=== PATIENT | male | born 1975 | race Caucasian/White ===

== ENCOUNTER 2019-05-26 20:48 | Observation (INO) | payer BC ==
[2019-05-27] MEDS ORDERED: ASPIRIN 81 MG TABLET, CHEWABLE PO ONE (00:04)
[2019-05-27] MEDS ORDERED: LABETALOL HCL INJ 20 MG/4 ML DISP.SYRIN IV ONE (00:05)
--- NOTE | 2019-05-27 00:06 | ER Document Report ---
ED Cardiac - General Chief Complaint: Chest Pain Stated Complaint: CHEST PAIN Time Seen by Provider: 05/26/19 23:56 Mode of Arrival: Ambulatory Information source: Patient TRAVEL OUTSIDE OF THE [place] IN LAST 30 DAYS: No - HPI Patient complains to provider of: Chest pain Was the onset of pain: Sudden Is the pain a: New problem Chest pain location: Substernal Quality of pain: Constant, Moderate, Heaviness Chest pain radiation location: Left arm Severity now: Moderate Severity at worst: Severe Pain level currently: 3 Chest pain precipitating factors: At Rest Cardiac risk factors: Hx PA Positive cardiac history: Yes Associated symptoms: Headache Exacerbated by: Denies Relieved by: Nothing Similar symptoms previously: No Recently seen / treated by doctor: No - Related Data Allergies/Adverse Reactions: No Known Allergies Allergy (Verified 11/24/13 23:07) Past Medical History - Social History Smoking Status: Unknown if Ever Smoked Family History: Reviewed & Not Pertinent - Immunizations Hx Diphtheria, Pertussis, Tetanus Vaccination: No Review of Systems - Review of Systems Constitutional: No symptoms reported EENT: No symptoms reported Cardiovascular: Chest pain Respiratory: No symptoms reported Gastrointestinal: No symptoms reported Genitourinary: No symptoms reported Male Genitourinary: No symptoms reported Musculoskeletal: No symptoms reported Skin: No symptoms reported Hematologic/Lymphatic: No symptoms reported Neurological/Psychological: No symptoms reported -: Yes All other systems reviewed and negative Physical Exam - Vital signs Vitals: Temp Pulse Resp BP Pulse Ox 98.6 F 86 16 165/99 H 94 05/26/19 22:08 05/26/19 22:08 05/26/19 22:08 05/26/19 22:08 05/26/19 22:08 Interpretation: Normal - General General appearance: Appears well, Alert, Other - Obese In distress: None - HEENT Head: Normocephalic, Atraumatic Eyes: Normal Pupils: PERRL - Respiratory Respiratory status: No respiratory distress Chest status: Nontender Breath sounds: Normal Chest palpation: Normal - Cardiovascular Rhythm: Regular Heart sounds: Normal auscultation Murmur: No - Abdominal Inspection: Normal Distension: No distension Bowel sounds: Normal Tenderness: Nontender Organomegaly: No organomegaly - Back Back: Normal, Nontender - Extremities General upper extremity: Normal inspection, Nontender, Normal color, Normal ROM, Normal temperature General lower extremity: Normal inspection, Nontender, Normal color, Normal ROM, Normal temperature, Normal weight bearing. No: Jonas's sign - Neurological Neuro grossly intact: Yes Cognition: Normal Orientation: AAOx4 Lyla Coma Scale Eye Opening: Spontaneous [place] Coma Scale Verbal: Oriented [place] Coma Scale Motor: Obeys Commands Lyla Coma Scale Total: 15 Speech: Normal Motor strength normal: LUE, RUE, LLE, RLE Sensory: Normal - Psychological Associated symptoms: Normal affect, Normal mood - Skin Skin Temperature: Warm Skin Moisture: Dry Skin Color: Normal Course - Re-evaluation Re-evalutation: 05/27/19 04:35 Patient is currently chest pain-free in the ED. Nitroglycerin was not given because the blood pressure is 128 systolic and patient is chest pain-free. - Vital Signs Vital signs: Temp Pulse Resp BP Pulse Ox 98.3 F 86 17 128/79 H 92 05/27/19 01:00 05/26/19 22:08 05/27/19 03:01 05/27/19 03:01 05/27/19 03:01 - Laboratory Result Diagrams: 05/27/19 00:03 05/27/19 00:03 Laboratory results interpreted by me: 05/27/19 05/27/19 00:03 00:03 RDW 14.6 H Glucose 112 H Creatine Kinase 324 H - Diagnostic Test Radiology reviewed: Reports reviewed Radiology results interpreted by or: 05/27/19 03:31 Chest x-ray is negative. - EKG Interpretation by Hi EKG shows normal: Sinus rhythm Rate: Normal Heart block present: 1st Degree When compared to previous EKG there are: Previous EKG unavailable Additional EKG results interpreted by or: 05/27/19 03:33 No STEMI. - Transfer of Care Notes: 05/27/19 04:35 Patient will be admitted by the hospitalist Dr. Chinedu Barroso for further evaluation and management. Discharge - Discharge Clinical Impression: Uncontrolled hypertension Chest pain Qualifiers: Chest pain type: unspecified Qualified Code(s): R07.9 - Chest pain, unspecified Condition: Stable Disposition: ADMITTED INPATIENT Admitting Provider: Dharmesh (Hospitalist) Unit Admitted: Telemetry
[2019-05-27 00:22] LABS: ABSOLUTE EOSINOPHILS # (AUTO) 0.2 10^3/uL (0.0-0.6); ABSOLUTE LYMPHOCYTES (AUTO) 2.5 10^3/uL (0.5-4.7); ABSOLUTE MONOCYTES (AUTO) 0.8 10^3/uL (0.1-1.4); ABSOLUTE NEUT (AUTO) 3.6 10^3/uL (1.7-8.2); BASOPHILS % (AUTO) 0.7 % (0-2); EOSINOPHILS % (AUTO) 2.6 % (0-6); HEMATOCRIT 43.9 % (37.9-51.0); HEMOGLOBIN 15.1 g/dL (13.5-17.0); LYMPHOCYTES % (AUTO) 35.3 % (13-45); MEAN CORPUSCULAR HEMOGLOBIN 29.1 pg (27.0-33.4); MEAN CORPUSCULAR HGB CONC 34.5 g/dL (32.0-36.0); MEAN CORPUSCULAR VOLUME 85 fl (80-97); PLATELET COUNT 160 10^3/uL (150-450); RED BLOOD COUNT 5.19 10^6/uL (4.35-5.55); RED CELL DISTRIBUTION WIDTH 14.6 % (11.5-14.0); SEGMENTED NEUTROPHILS % (AUTO) 50.4 % (42-78); TOTAL CELLS COUNTED % (AUTO) 100 %; WHITE BLOOD COUNT 7.2 10^3/uL (4.0-10.5)
[2019-05-27 00:25] LABS: INTERNATIONAL RATION (INR) 0.99; PROTHROMBIN TIME 13.1 SEC (11.4-15.4)
[2019-05-27] MEDS ORDERED: LISINOPRIL 10 MG TABLET PO ONE (00:35)
[2019-05-27 00:36] LABS: ALANINE AMINOTRANSFERASE 56 U/L (21-72); ALKALINE PHOSPHATASE 68 U/L (38-126); ANION GAP 8 (5-19); ASPARTATE AMINO TRANSFERASE 35 U/L (17-59); BILIRUBIN,DIRECT 0.2 mg/dL (0.0-0.4); BILIRUBIN,TOTAL 0.5 mg/dL (0.2-1.3); BLOOD UREA NITROGEN 18 mg/dL (7-20); CALCIUM 9.2 mg/dL (8.4-10.2); CARBON DIOXIDE 24 mmol/L (22-30); CHLORIDE 106 mmol/L (98-107); CREATINE KINASE 324 U/L (55-170); GLUCOSE 112 mg/dL (75-110); POTASSIUM 3.8 mmol/L (3.6-5.0); SODIUM 138.3 mmol/L (137-145); TOTAL PROTEIN 7.1 g/dL (6.3-8.2)
[2019-05-27 00:48] LABS: CREATINE KINASE MB 2.21 ng/mL (<4.55)
[2019-05-27 00:49] LABS: TROPONIN I < 0.012 ng/mL
--- NOTE | 2019-05-27 00:57 | RADIOLOGY REPORT (SQ) ---
EXAM DESCRIPTION: [facility]: XR CHEST 1 VIEW CLINICAL HISTORY: 44 years Male, chest pain COMPARISON: 09/09/2015 FINDINGS: Lungs are clear, with no focal infiltrate, pneumothorax, or pleural effusion. Mediastinum is within normal limits for this positioning. Bony structures are unremarkable. IMPRESSION: 1. No acute pulmonary findings.
[2019-05-27] MEDS ORDERED: NITROGLYCERIN 2% OINTMENT 1 GM PACKET TP ONE (03:30)
[2019-05-27] MEDS ORDERED: NITROGLYCERIN 0.4 MG/TAB 25 TAB/BOTTLE SL PRN (03:52)
[2019-05-27] MEDS ORDERED: MAG HYDROX/AL HYDROX/SIMETH SUSP 30 ML UDCUP PO PRN (03:52)
[2019-05-27] MEDS ORDERED: ACETAMINOPHEN 325 MG TABLET PO PRN (03:52)
--- NOTE | 2019-05-27 06:19 | PDOC H&P ---
History of Present Illness Admission Date/PCP: 05/27/19 04:33 VIRGINIA MARES PA-C Patient complains of: Chest pain History of Present Illness: HERMELINDA RUIZ is a 44 year old male with a past medical history of hypertension and hypogonadism who presents with 2 and half hours of retrosternal left-sided chest pain which radiates to the left shoulder and arm, 3 out of 5 intensity, dull in nature. Though not associated with palpitations nausea vomiting diaphoresis. He is unable to identify alleviating or exacerbating factors in the emergency room he has an unremarkable work-up and is referred to the hospitalist for admission. Patient admits previous episode February 2018 having treadmill stress test at [facility] which was negative. Patient denies recent change in medication regiment is otherwise felt well. Past Medical History Cardiac Medical History: Reports: Myocardial Infarction, Hypertension Past Surgical History Past Surgical History: Reports: None Social History Information Source: Patient Lives with: Spouse/Significant other Smoking Status: Unknown if Ever Smoked Frequency of Alcohol Use: None Drugs: None - Advance Directive Resuscitation Status: Full Code Family History Family History: CAD Parental Family History Reviewed: Yes Children Family History Reviewed: Yes Sibling(s) Family History Reviewed.: Yes Medication/Allergy Home Medications: Oseltamivir Phosphate [Tamiflu] 75 mg PO BID #10 capsule 11/24/13 Hydrochlorothiazide 12.5 mg PO DAILY #30 capsule 09/09/15 Allergies/Adverse Reactions: No Known Allergies Allergy (Verified 11/24/13 23:07) Review of Systems Constitutional: ABSENT: chills, fever(s), headache(s), weight gain, weight loss Eyes: ABSENT: visual disturbances Ears: ABSENT: hearing changes Cardiovascular: ABSENT: chest pain, dyspnea on exertion, edema, orthropnea, palpitations Respiratory: ABSENT: cough, hemoptysis Gastrointestinal: ABSENT: abdominal pain, constipation, diarrhea, hematemesis, hematochezia, nausea, vomiting Genitourinary: ABSENT: dysuria, hematuria Musculoskeletal: ABSENT: joint swelling Integumentary: ABSENT: rash, wounds Neurological: ABSENT: abnormal gait, abnormal speech, confusion, dizziness, focal weakness, syncope Psychiatric: ABSENT: anxiety, depression, homidical ideation, suicidal ideation Endocrine: ABSENT: cold intolerance, heat intolerance, polydipsia, polyuria Hematologic/Lymphatic: ABSENT: easy bleeding, easy bruising Physical Exam Vital Signs: Temp Pulse Resp BP Pulse Ox 98.3 F 86 17 128/79 H 92 05/27/19 01:00 05/26/19 22:08 05/27/19 03:01 05/27/19 03:01 05/27/19 03:01 Intake & Output 05/25/19 05/26/19 05/27/19 11:59 11:59 11:59 Weight 128.4 kg General appearance: PRESENT: no acute distress, well-developed, well-nourished Head exam: PRESENT: atraumatic, normocephalic Eye exam: PRESENT: conjunctiva pink, EOMI, PERRLA. ABSENT: scleral icterus Ear exam: PRESENT: normal external ear exam Mouth exam: PRESENT: moist, tongue midline Neck exam: ABSENT: carotid bruit, JVD, lymphadenopathy, thyromegaly Respiratory exam: PRESENT: clear to auscultation dewey. ABSENT: rales, rhonchi, wheezes Cardiovascular exam: PRESENT: RRR. ABSENT: diastolic murmur, rubs, systolic murmur Pulses: PRESENT: normal dorsalis pedis pul Vascular exam: PRESENT: normal capillary refill GI/Abdominal exam: PRESENT: normal bowel sounds, soft. ABSENT: distended, guarding, mass, organolmegaly, rebound, tenderness Rectal exam: PRESENT: deferred Extremities exam: PRESENT: full ROM. ABSENT: calf tenderness, clubbing, pedal edema Neurological exam: PRESENT: alert, awake, oriented to person, oriented to place, oriented to time, oriented to situation, CN II-XII grossly intact. ABSENT: motor sensory deficit Psychiatric exam: PRESENT: appropriate affect, normal mood. ABSENT: homicidal ideation, suicidal ideation Skin exam: PRESENT: dry, intact, warm. ABSENT: cyanosis, rash Results Laboratory Results: 05/27/19 00:03 05/27/19 00:03 05/27/19 05/27/19 00:03 00:03 WBC 7.2 RBC 5.19 Hgb 15.1 Hct 43.9 MCV 85 MCH 29.1 MCHC 34.5 RDW 14.6 H Plt Count 160 Seg Neutrophils % 50.4 Lymphocytes % 35.3 Monocytes % 11.0 Eosinophils % 2.6 Basophils % 0.7 Absolute Neutrophils 3.6 Absolute Lymphocytes 2.5 Absolute Monocytes 0.8 Absolute Eosinophils 0.2 Absolute Basophils 0.0 Sodium 138.3 Potassium 3.8 Chloride 106 Carbon Dioxide 24 Anion Gap 8 BUN 18 Creatinine 1.02 Est GFR ( Amer) > 60 Est GFR (Non-Af Amer) > 60 Glucose 112 H Calcium 9.2 Total Bilirubin 0.5 AST 35 ALT 56 Alkaline Phosphatase 68 Total Protein 7.1 Albumin 4.0 05/27/19 05/27/19 00:03 00:03 Creatine Kinase 324 H CK-MB (CK-2) 2.21 Troponin I < 0.012 Impressions: Chest X-Ray 05/27/19 00:04 IMPRESSION: 1. No acute pulmonary findings. Assessment and Plan - Diagnosis (1) Chest pain Qualifiers: Chest pain type: unspecified Qualified Code(s): R07.9 - Chest pain, unspecified Is this a current diagnosis for this admission?: Yes Plan: Atypical chest pain though the patient's pain is atypical there are multiple risk factors for coronary artery disease and subsequently will observe and evaluation of acute coronary syndrome versus coronary artery disease with anginal equivalents. Cardiac monitoring blood pressure Q6 hours ,TSH, lipid profile, serial cardiac enzymes and cardiac stress test (2) Hypogonadism Is this a current diagnosis for this admission?: Yes Plan: Follow-up free testosterone (3) Uncontrolled hypertension Is this a current diagnosis for this admission?: Yes Plan: MARYAN inhibitor, hydralazine as needed - Time Time Spent with patient: 25-34 minutes
[2019-05-27] MEDS ORDERED: LISINOPRIL 10 MG TABLET PO SCH (10:00)
[2019-05-27] MEDS ORDERED: ASPIRIN 81 MG TABLET, ENT COATED PO SCH (10:00)
[2019-05-27 14:52] VITALS: BP 125/90
--- NOTE | 2019-05-27 19:20 | EKG REPORT ---
SEVERITY:- ABNORMAL ECG - SINUS RHYTHM FIRST DEGREE AV BLOCK : Confirmed by: Melina Carlton 27-May-2019 19:18:57
[2019-05-27] MEDS ORDERED: ATORVASTATIN CALCIUM 40 MG TABLET PO SCH (22:00)
--- NOTE | 2019-05-27 22:00 | PDOC DISCHARGE SUMMARY ---
General - Admit/Disc Date/PCP Admission Date/Primary Care Provider: 05/27/19 04:33 VIRGINIA MARES PA-C Discharge Date: 05/27/19 - Discharge Diagnosis (1) Chest pain Is this a current diagnosis for this admission?: Yes Summary: Patient was admitted with atypical chest pain. He does have multiple risk factors including HTN and obesity. After further discussion, it is likely the patient does not have a prior RI. Patient relates that he was sent to ED from PCP in 2018 for abn EKG but subsequently had negative troponin overnight with a normal treadmill stress test w/o recommendations for medications or cardiology follow up. CXR is benign EKG demonstrates NSR with 1st degree block Troponins are negative x 3 No further episodes of chest discomfort. As stress testing is not available over the weekend and patient is considered low risk (HEART score 2), patient was provided to option of remaining in house until Wednesday vs discharge to home with outpatient cardiology follow up to schedule further testing. Patient elected to discharge home. He is advised to follow up with his PCP within 1 week. He is instructed to call Dr. Carlton's office on Wednesday to schedule follow up appointment and stress testing. He is instructed to avoid tobacco intake and eat a low sodium diet. He is provided prescriptions for ASA, atorvastatin, and lisinopril. Patient is advised to return to the emergency department as needed for any concerning symptoms. (2) Uncontrolled hypertension Is this a current diagnosis for this admission?: Yes Summary: Improved. Recommend lifestyle and dietary modifications. Continue cardiac diet; decrease tobacco and caffeine intake Have resumed patient's prior home medication; Lisinopril 40mg daily. (3) Hypogonadism Is this a current diagnosis for this admission?: Yes Summary: Continue home medication regiment. - Additional Information Resuscitation Status: Full Code Discharge Diet: Cardiac Discharge Activity: Activity As Tolerated, Balance Activity w/Rest Prescriptions: Aspirin [Ecotrin 81 mg EC Tablet] 81 mg PO DAILY #90 tabec Atorvastatin Calcium [Lipitor 40 mg Tablet] 40 mg PO QHS #30 tablet Lisinopril [Prinivil 40 mg Tablet] 40 mg PO DAILY #30 tablet Home Medications: Acetaminophen [Tylenol 325 mg Tablet] 650 mg PO Q4HP PRN tablet 05/27/19 Aspirin [Ecotrin 81 mg EC Tablet] 81 mg PO DAILY #90 tabec 05/27/19 Atorvastatin Calcium [Lipitor 40 mg Tablet] 40 mg PO QHS #30 tablet 05/27/19 Clomiphene Citrate [Serophene 50 mg Tablet] 50 mg PO MOWEFR@0800 05/27/19 Lisinopril [Prinivil 40 mg Tablet] 40 mg PO DAILY #30 tablet 05/27/19 History of Present Illness History of Present Illness: Per H&P by Dr. Barroso: HERMELINDA RUIZ is a 44 year old male with a past medical history of hypertension and hypogonadism who presents with 2 and half hours of retrosternal left-sided chest pain which radiates to the left shoulder and arm, 3 out of 5 intensity, dull in nature. Though not associated with palpitations nausea vomiting diaphoresis. He is unable to identify alleviating or exacerbating factors in the emergency room he has an unremarkable work-up and is referred to the hospitalist for admission. Patient admits previous episode February 2018 having treadmill stress test at [facility] which was negative. Patient denies recent change in medication regiment is otherwise felt well. Physical Exam Vital Signs: Temp Pulse Resp BP Pulse Ox 98.4 F 86 15 122/81 95 05/27/19 07:02 05/26/19 22:08 05/27/19 08:01 05/27/19 08:01 05/27/19 08:01 Intake & Output 05/26/19 05/27/19 05/28/19 06:59 06:59 06:59 Weight 128.4 kg General appearance: PRESENT: no acute distress, cooperative, obese, well- developed, well-nourished Head exam: PRESENT: atraumatic, normocephalic Eye exam: PRESENT: conjunctiva pink, EOMI, PERRLA. ABSENT: scleral icterus Ear exam: PRESENT: normal external ear exam Mouth exam: PRESENT: moist, tongue midline Neck exam: ABSENT: carotid bruit, JVD, lymphadenopathy, thyromegaly Respiratory exam: PRESENT: clear to auscultation dewey, symmetrical, unlabored. ABSENT: rales, rhonchi, wheezes Cardiovascular exam: PRESENT: RRR, +S1, +S2. ABSENT: diastolic murmur, rubs, systolic murmur Pulses: PRESENT: normal dorsalis pedis pul Vascular exam: PRESENT: normal capillary refill GI/Abdominal exam: PRESENT: normal bowel sounds, soft. ABSENT: distended, guarding, mass, organolmegaly, rebound, tenderness Rectal exam: PRESENT: deferred Extremities exam: PRESENT: full ROM. ABSENT: calf tenderness, clubbing, pedal edema Neurological exam: PRESENT: alert, awake, oriented to person, oriented to place, oriented to time, oriented to situation, CN II-XII grossly intact. ABSENT: motor sensory deficit Psychiatric exam: PRESENT: appropriate affect, normal mood. ABSENT: homicidal ideation, suicidal ideation Skin exam: PRESENT: dry, intact, warm. ABSENT: cyanosis, rash Results Laboratory Results: 05/27/19 00:03 05/27/19 00:03 05/27/19 05/27/19 00:03 00:03 WBC 7.2 RBC 5.19 Hgb 15.1 Hct 43.9 MCV 85 MCH 29.1 MCHC 34.5 RDW 14.6 H Plt Count 160 Seg Neutrophils % 50.4 Lymphocytes % 35.3 Monocytes % 11.0 Eosinophils % 2.6 Basophils % 0.7 Absolute Neutrophils 3.6 Absolute Lymphocytes 2.5 Absolute Monocytes 0.8 Absolute Eosinophils 0.2 Absolute Basophils 0.0 Sodium 138.3 Potassium 3.8 Chloride 106 Carbon Dioxide 24 Anion Gap 8 BUN 18 Creatinine 1.02 Est GFR ( Amer) > 60 Est GFR (Non-Af Amer) > 60 Glucose 112 H Calcium 9.2 Total Bilirubin 0.5 AST 35 ALT 56 Alkaline Phosphatase 68 Total Protein 7.1 Albumin 4.0 05/27/19 05/27/19 05/27/19 00:03 00:03 06:34 Creatine Kinase 324 H CK-MB (CK-2) 2.21 Troponin I < 0.012 < 0.012 05/27/19 12:22 Creatine Kinase CK-MB (CK-2) Troponin I < 0.012 Impressions: Chest X-Ray 05/27/19 00:04 IMPRESSION: 1. No acute pulmonary findings. Qualifiers - * PATIENT BEING DISCHARGED WITH ANY OF THE FOLLOWING DIAGNOSIS: No Acute Heart Failure - Is this a Heart Failure Patient?: No Plan Discharge Plan: Follow up with primary care provider within 1 week. Continue daily Aspirin and Statin therapy. Follow up with Dr. Carlton, transcripter, next week to schedule outpatient echocardiogram and stress test. Do not smoke. Decrease caffeine and salt intake. Return to the emergency department as needed for concerning symptoms. Time Spent: Less than 30 Minutes
[2019-05-29] MEDS ORDERED: CLOMIPHENE CITRATE 50 MG PO SCH (08:00)
== END 2019-05-27 14:43 | disposition home or self-care (01) ==
LOC: ER 20:48 → EH 05-27 04:33
PROVIDERS: ADMIT Internal Medicine; ATTEND Internal Medicine
DX: R07.89 Other chest pain (principal); I10 Essential (primary) hypertension; E66.9 Obesity, unspecified; R51 Headache; E29.1 Testicular hypofunction; I44.0 Atrioventricular block, first degree; I25.2 Old myocardial infarction; Z79.899 Other long term (current) drug therapy; Z82.49 Family history of ischemic heart disease and other diseases of the circulatory system
CPT/HCPCS: 93005; 99285; 36415; 82553; 82550; 85025; 85610; 80053; 84484; 84402; 71045; 93010; J3490

== ENCOUNTER 2019-11-04 03:39 | Emergency (ER) | payer BC ==
[2019-11-04 03:52] VITALS: BP 125/83
--- NOTE | 2019-11-04 04:54 | RADIOLOGY REPORT (SQ) ---
CLINICAL HISTORY: coughed and heard ribs pop on left posterior. COMPARISON: None. TECHNIQUE: XR CHEST 2 VIEWS 11/04/2019 12:00 AM SERVICE ORDER TAKER FINDINGS: Cardiac silhouette is normal in size. Lungs are clear without consolidation, atelectasis, mass or edema. There is no pleural effusion. There is no pneumothorax. There are no acute osseous findings. IMPRESSION: Clear lungs.
[2019-11-04] MEDS ORDERED: KETOROLAC TROMETHAMINE 60 MG/2 ML SDV IM ONE (06:15)
--- NOTE | 2019-11-04 06:20 | ER Document Report ---
ED General - General Chief Complaint: Rib Pain Stated Complaint: COUGH,LEFT SIDE "POP" Time Seen by Provider: 11/04/19 06:10 Primary Care Provider: VIRGINIA RIZO PA-C [Primary Care Provider] - Follow up as needed Notes: 44-year-old male presents with left lower rib pain that occurred while he was coughing. Patient states he felt a pop last night and has had pain ever since. Pain is worse with coughing. Patient states he has been coughing for the past several weeks. Patient states sometimes it is productive with phlegm. Denies any blood. Patient denies any shortness of breath. Patient denies any fever. TRAVEL OUTSIDE OF THE [place] IN LAST 30 DAYS: No - Related Data Allergies/Adverse Reactions: No Known Allergies Allergy (Verified 11/24/13 23:07) Home Medications: lisinopril. metoprolol Past Medical History - Social History Smoking Status: Never Smoker Frequency of alcohol use: None Drug Abuse: None Family History: CAD Patient has suicidal ideation: No Patient has homicidal ideation: No - Past Medical History Cardiac Medical History: Reports: Hx Heart Attack, Hx Hypertension Renal/ Medical History: Denies: Hx Peritoneal Dialysis - Immunizations Hx Diphtheria, Pertussis, Tetanus Vaccination: No Review of Systems - Review of Systems Notes: Constitutional: Negative for fever. HENT: Negative for sore throat. Eyes: Negative for visual changes. Cardiovascular: Negative for chest pain. Respiratory: Positive for cough. Negative for shortness of breath. Gastrointestinal: Negative for abdominal pain, vomiting or diarrhea. Genitourinary: Negative for dysuria. Musculoskeletal: Positive for rib pain. Negative for back pain. Skin: Negative for rash. Neurological: Negative for headaches, weakness or numbness. 10 point ROS negative except as marked above and in HPI. Physical Exam - Vital signs Vitals: Temp Pulse Resp BP Pulse Ox 98.5 F 76 20 125/83 93 11/04/19 03:49 11/04/19 03:49 11/04/19 03:49 11/04/19 03:49 11/04/19 03:49 - Notes Notes: GENERAL: Well-appearing, well-nourished and in no acute distress. HEAD: Atraumatic, normocephalic. EYES: Pupils equal round and reactive to light, extraocular movements intact, sclera anicteric, conjunctiva are normal. NECK: Normal range of motion, supple without lymphadenopathy or JVD. LUNGS: Breath sounds clear to auscultation bilaterally and equal. No wheezes rales or rhonchi. Mild tenderness to lower posterior left ribs. No deformity n oted. No ecchymosis. HEART: Regular rate and rhythm without murmurs, rubs or gallops. EXTREMITIES: Normal range of motion, no pitting or edema. No clubbing or cyanosis. NEUROLOGICAL: Cranial nerves II through XII grossly intact. Normal speech, normal gait. PSYCH: Normal mood, normal affect. SKIN: Warm, Dry, normal turgor, no rashes or lesions noted. Course - Re-evaluation Re-evalutation: 11/04/19 44-year-old male presents with left lower rib pain after coughing. Patient denies any history of COPD or asthma. Patient denies any fever. Patient states pain is worse with coughing. Patient has been coughing for the past several weeks. Intermittently productive with sputum. Patient denies any hemoptysis. Patient is nontoxic well-appearing. Lungs are clear bilaterally. Regular rate and rhythm. No ecchymosis. Mild tenderness to left posterior lower ribs. X-ray shows no fractured ribs or pneumonia. Discussed all results with patient. Return precautions given. Referral back to PCP given. All questions/concerns addressed prior to discharge. - Vital Signs Vital signs: Temp Pulse Resp BP Pulse Ox 98.5 F 76 20 125/83 93 11/04/19 04:09 11/04/19 03:49 11/04/19 04:09 11/04/19 03:49 11/04/19 04:09 Discharge - Discharge Clinical Impression: Coughing Contusion of rib on left side Qualifiers: Encounter type: initial encounter Qualified Code(s): S20.212A - Contusion of left front wall of thorax, initial encounter Condition: Stable Disposition: HOME, SELF-CARE Instructions: Rib Contusion ([facility]) Additional Instructions: Your chest x-ray did not show any rib fractures or pneumonia. It was otherwise normal. Please take medications as prescribed. Please follow-up with your primary care doctor in 1 week if no improvement. Return to ER if you start having any worsening symptoms, including fever, worsening pain, shortness of breath, chest pain, vomiting, or any other symptoms that are concerning to you. Prescriptions: Benzonatate [Tessalon Perles 100 mg Capsule] 100 mg PO Q8HP PRN #40 capsule PRN Reason: Ibuprofen [Motrin 800 mg Tablet] 800 mg PO Q8H PRN #30 tab PRN Reason: Referrals: VIRGINIA RIZO PA-C [Primary Care Provider] - Follow up in 1 week
== END 2019-11-04 06:49 | disposition home or self-care (01) ==
LOC: ER 03:39
DX: S20.212A Contusion of left front wall of thorax, initial encounter (principal); X58.XXXA Exposure to other specified factors, initial encounter; R07.81 Pleurodynia; R05 Cough; I10 Essential (primary) hypertension; Z79.899 Other long term (current) drug therapy
CPT/HCPCS: 71046; 99283